=== PATIENT | female | born 1980 | race Caucasian/White ===

== ENCOUNTER 2016-07-05 13:34 | Emergency (ER) | payer OTHER | END 2016-07-05 16:09 | disposition home or self-care (01) | LOC: FER 13:34 | DX: R07.89 Other chest pain (principal); R73.9 Hyperglycemia, unspecified; I25.10 Atherosclerotic heart disease of native coronary artery without angina pectoris; I10 Essential (primary) hypertension; F17.210 Nicotine dependence, cigarettes, uncomplicated | CPT/HCPCS: 73140; 90471; 90715 ==

== ENCOUNTER 2016-08-05 12:04 | Emergency (ER) | payer OTHER | END 2016-08-05 17:21 | disposition home or self-care (01) | LOC: FER 12:04 | DX: K58.1 Irritable bowel syndrome with constipation (principal); F17.210 Nicotine dependence, cigarettes, uncomplicated; Z88.2 Allergy status to sulfonamides | CPT/HCPCS: 74000; 99283 ==

== ENCOUNTER 2021-03-22 14:02 | Emergency (ER) | payer OTHER ==
[~2021-03-22 14:02] MED LIST: LEVAQUIN750 MG PO; NORCO 5-325 TA1 EACH PO; ZOFRAN ODT4 MG PO
[2021-03-22 15:01] LABS: BASOPHIL 0.4 % (0-2); EOSINOPHIL 1.3 % (0-5); HCT 41.7 % (37.0-47.0); HGB 13.5 g/dl (12.5-16.0); LYMPHOCYTE 12.9 % (15-48); MCH 29.9 pg (25.0-31.0); MCHC 32.4 g/dL (32.0-36.0); MCV 92.3 fL (78.0-100.0); MONOCYTE 6.7 % (0-12); NEUTROPHIL 78.1 % (41-80); NRBC 0; PLT 341 K/uL (150-400); RBC 4.52 M/uL (4.20-5.40); RDW 12.2 % (11.5-14.0); WBC 11.1 K/uL (4.0-10.5)
[2021-03-22 15:18] LABS: CREATININE 0.9 mg/dL (0.51-0.95); POTASSIUM 3.9 mmol/L (3.5-5.1)
== END 2021-03-22 16:57 | disposition home or self-care (01) ==
LOC: FER 14:02
PROVIDERS: Nurse Practitioner Family
DX: T50.901A Poisoning by unspecified drugs, medicaments and biological substances, accidental (unintentional), initial encounter (principal); Z88.2 Allergy status to sulfonamides; Z88.8 Allergy status to other drugs, medicaments and biological substances
CPT/HCPCS: 36415; 80048; 85025; 99284; J7030

== ENCOUNTER 2021-08-16 11:14 | Emergency (ER) | payer OTHER ==
[2021-08-16 12:17] LABS: BILIRUBIN 1+ mg/dL (NEGATIVE); BLOOD TRACE-INTACT Ery/uL (NEGATIVE); CLARITY CLEAR (CLEAR); COLOR YELLOW (YELLOW); GLUCOSE (U) NORMAL (NORMAL); LEUKOCYTES 2+ Leu/uL (NEGATIVE); NITRITE NEGATIVE (NEGATIVE); PROTEIN NEGATIVE (NEGATIVE); SPECIFIC GRAVITY 1.025 (1.001-1.030); UROBILINOGEN 0.2 mg/dL (0.2-1.0)
[2021-08-16 12:21] LABS: AMPHETAMINES POSITIVE (NEGATIVE); BARBITURATES NEGATIVE (NEGATIVE); ECSTASY (MDMA) POSITIVE (NEGATIVE); MARIJUANA (THC) NEGATIVE (NEGATIVE); METHADONE NEGATIVE (NEGATIVE); OPIATES NEGATIVE (NEGATIVE); OXYCODONE NEGATIVE (NEGATIVE)
[2021-08-16 12:25] LABS: BACTERIA TRACE
[2021-08-16 12:58] LABS: BASOPHIL 0.5 % (0-2); EOSINOPHIL 0.4 % (0-5); HCT 45.5 % (37.0-47.0); HGB 14.9 g/dl (12.5-16.0); LYMPHOCYTE 22.5 % (15-48); MCH 28.1 pg (25.0-31.0); MCHC 32.7 g/dL (32.0-36.0); MCV 85.8 fL (78.0-100.0); MONOCYTE 7.2 % (0-12); MPV 8.6 fL (6.0-9.5); NRBC 0; PLT 449 K/uL (150-400); RDW 13.9 % (11.5-14.0); WBC 8.6 K/uL (4.0-10.5)
[2021-08-16 13:19] LABS: BILIRUBIN - TOTAL 0.5 mg/dL (0.2-1.0); BUN/CREAT RATIO (CALC) 18.2 RATIO; CREATININE 0.88 mg/dL (0.51-0.95); GLOBULIN (CALCULATION) 4.8 g/dL; POTASSIUM 3.8 mmol/L (3.5-5.1); TOTAL PROTEIN 8.8 g/dL (6.4-8.2)
[2021-08-16 13:34] LABS: CORONAVIRUS 2019 SARS-COV-2 NEGATIVE (NEGATIVE); INFLUENZA A NAA NEGATIVE (NEGATIVE)
== END 2021-08-16 14:46 | disposition home or self-care (01) ==
LOC: FER 11:14
PROVIDERS: Emergency Medicine
DX: F11.90 Opioid use, unspecified, uncomplicated (principal); F15.90 Other stimulant use, unspecified, uncomplicated; R07.89 Other chest pain; R11.2 Nausea with vomiting, unspecified; F17.200 Nicotine dependence, unspecified, uncomplicated; Z20.822 Contact with and (suspected) exposure to COVID-19; Z28.311 Partially vaccinated for COVID-19; Z88.2 Allergy status to sulfonamides; Z88.8 Allergy status to other drugs, medicaments and biological substances
CPT/HCPCS: 36415; 71045; 80053; 80305; 81001; 84145; 84484; 85025; 85379; 86140; 93005; U0002

== ENCOUNTER 2021-08-17 13:20 | Emergency (ER) | payer OTHER | END 2021-08-17 14:00 | LOC: FER 13:20 | DX: Z02.79 Encounter for issue of other medical certificate (principal) | CPT/HCPCS: 99282 ==